=== PATIENT | male | born 1985 | race Caucasian/White ===

== ENCOUNTER 2018-06-22 02:39 | Emergency (ER) | payer OTHER ==
[2018-06-22] MEDS ORDERED: oxyCODONE/Acetamin 5/325 MG* TAB PO ONE (03:00)
[2018-06-22] MEDS ORDERED: Ibuprofen TAB* 600 MG PO ONE (03:00)
--- NOTE | 2018-06-22 03:00 | ED ---
Shortness of Breath - HPI Summary HPI Summary: A 32 y/o male presents to [facility] with a chief complaint of SOB for the past 1.5 hours. He claims that his symptoms are similar to when he had a collapsed lung one and a half years ago. He claims that his pain has been changing in severity and has been moving around. Now his pain is in his upper back and chest. He rates his pain as a 5/10 in severity. He reports that movement does not worsen his pain. He says that he lifts weights regularly. - History of Current Complaint Chief Complaint: EDShortnessOfBreath Time Seen by Provider: 06/22/18 02:55 Hx Obtained From: Patient Onset/Duration: Lasting Hours, Still Present Timing: Constant Current Severity: Moderate Aggrevating Factors: Nothing Alleviating Factors: Nothing Associated Signs & Symptoms: Negative - fever, Chest Pain Unrelated to Cough - Allergy/Home Medications Allergies/Adverse Reactions: Allergies Allergy/AdvReac Type Severity Reaction Status Date / Time No Known Allergies Allergy Verified 06/22/18 04:51 Home Medications: Home Medications NK [No Home Medications Reported] 06/22/18 [History Confirmed 06/22/18] PMH/Surg Hx/FS Hx/Imm Hx Endocrine/Hematology History: Denies: Hx Diabetes Cardiovascular History: Denies: Hx Hypertension Respiratory History: Reports: Other Respiratory Problems/Disorders - collapsed lung - Surgical History Surgery Procedure, Year, and Place: right shoulder surgery. hernia Infectious Disease History: No Infectious Disease History: Denies: Traveled Outside the [place] in Last 30 Days - Family History Known Family History: Negative: Hypertension, Diabetes - Social History Alcohol Use: Occasionally Hx Substance Use: No Substance Use Type: Reports: None Hx Tobacco Use: No Smoking Status (MU): Never Smoked Tobacco Review of Systems Negative: Fever Positive: Chest Pain Positive: Shortness Of Breath Positive: Myalgia - upper back pain All Other Systems Reviewed And Are Negative: Yes Physical Exam - Summary Physical Exam Summary: VITAL SIGNS: Reviewed. GENERAL: Patient is a well-developed and nourished MALE who is lying comfortable in the stretcher. Patient is not in any acute respiratory distress. HEAD AND FACE: No signs of trauma. No ecchymosis, hematomas or skull depressions. No sinus tenderness. EYES: PERRLA, EOMI x 2, No injected conjunctiva, no nystagmus. EARS: Hearing grossly intact. Ear canals and tympanic membranes are within normal limits. MOUTH: Oropharynx within normal limits. NECK: Supple, trachea is midline, no adenopathy, no JVD, no carotid bruit, no c- spine tenderness, neck with full ROM CHEST: Symmetric, no tenderness at palpation LUNGS: Clear to auscultation bilaterally. No wheezing or crackles. CVS: Regular rate and rhythm, S1 and S2 present, no murmurs or gallops appreciated. ABDOMEN: Soft, non-tender. No signs of distention. No rebound no guarding, and no masses palpated. Bowel sounds are normal. EXTREMITIES: FROM in all major joints, no edema, no cyanosis or clubbing. NEURO: Alert and oriented x 3. No acute neurological deficits. Speech is normal and follows commands. SKIN: Dry and warm Triage Information Reviewed: Yes Vital Signs On Initial Exam: Initial Vitals Temp Pulse Resp BP Pulse Ox 97.2 F 54 18 115/73 99 06/22/18 02:42 06/22/18 02:42 06/22/18 02:42 06/22/18 02:42 06/22/18 02:42 Vital Signs Reviewed: Yes Diagnostics - Vital Signs Vital Signs Temp Pulse Resp BP Pulse Ox 06/22/18 02:42 97.2 F 54 18 115/73 99 - Laboratory Lab Statement: Any lab studies that have been ordered have been reviewed, and results considered in the medical decision making process. - Radiology CXR Radiology Interpretation Completed By: Radiologist Summary of Radiographic Findings: No acute findings. ED physician has reviewed this imaging report. Re-Evaluation - Re-Evaluation First Eval Re-Evaluation Time: 04:35 Change: Unchanged Comment: discussed results Course/Dx - Course Course Of Treatment: A 32 y/o male presents to [facility] with a chief complaint of SOB for the past 1.5 hours. He claims that his symptoms are similar to when he had a collapsed lung one and a half months ago. The physical exam was unremarkable. In the ED course the patient was given Percocet PO and Ibuprofen PO. Case discussed with Dr. Mitchell, surgeon, who is requesting an official reading for the CXR. I paged the radiologist sheet metal technician to call [facility] to read the CXR. CXR impression: no acute findings. The radiologist reports that the CXR showed no pneumothorax. The patient will be discharged and follow up with his PCP. The patient is agreeable with this plan. - Diagnoses Provider Diagnoses: Chest wall pain - Physician Notifications Discussed Care of Patient With: Tasneem Mitchell Time Discussed With Above Provider: 04:17 Instructed by Provider To: Other - She is requesting an official reading for the CXR. I paged the radiologist sheet metal technician to call [facility] to read the CXR. Discharge - Sign-Out/Discharge Documenting (check all that apply): Patient Departure - DC Patient Received Moderate/Deep Sedation with Procedure: No - Discharge Plan Condition: Stable Disposition: HOME Patient Education Materials: Chest Wall Pain (ED) Referrals: [facility] [place] PHYSICIAN REFERRAL [Outside] (2-3 days) Additional Instructions: PLEASE RETURN TO THE ED IMMEDIATELY FOR WORSENING OR CONCERNING SYMPTOMS. - Billing Disposition and Condition Condition: STABLE Disposition: Home - Attestation Statements Document Initiated by Germán: Yes Documenting Scribe: Chapito Brooks Provider For Whom Germán is Documenting (Include Credential): Alexys Garcia MD Scribe Attestation: I, Chapito Brooks, scribed for Alexys Garcia MD on 06/22/18 at 0641. Scribe Documentation Reviewed: Yes Provider Attestation: The documentation as recorded by the Chapito cruz accurately reflects the service I personally performed and the decisions made by me, Alexys Garcia MD Status of Scribe Document: Viewed
[2018-06-22 05:03] VITALS: BP 117/68
== END 2018-06-22 05:02 | disposition home or self-care (01) ==
LOC: ED 02:39
DX: R07.89 Other chest pain (principal)
CPT/HCPCS: 71045; 99283; A9270-GY